=== PATIENT | female | born 1960 | race Caucasian/White ===

== ENCOUNTER → 2017-06-29 | Outpatient (CLI) | payer BC ==
[~2017-06-29] MED LIST: CTP1CL PO; FLV1 PO; FURO20TA PO; HYDR-3714 PO; SNQ/25 PO; TNR50 PO; cascara sagrada PO; potassium chloride PO
--- NOTE | 2017-06-30 10:28 | PULMONARY FUNCTION TEST ---
Interpretation based off ATS criteria. SPIROMETRY: Moderate obstructive ventilatory disease. BRONCHODILATOR: No significant response. LUNG VOLUMES: Mildly reduced with a reduced RV suggestive of obesity. DIFFUSION: Moderately reduced which corrects off alveolar volume to 151%. INTERPRETATION: Consistent with emphysema, degree is moderate.
== END | disposition home or self-care (01) ==
LOC: C.RC 12:28
PROVIDERS: ATTEND Physician Assistant
DX: R05 Cough (principal); R91.1 Solitary pulmonary nodule